=== PATIENT | male | born 1990 | race Caucasian/White ===

== ENCOUNTER 2021-01-10 13:51 | Observation (INO) | payer OTHER, BC ==
[~2021-01-10] VITALS: Ht 170.2 cm; Wt 68.0 kg
[2021-01-10 14:13] LABS: HEMOGLOBIN 15.2 gm/dl (14.0-17.5); RED BLOOD COUNT 4.99 M/UL (4.20-5.50); WHITE BLOOD COUNT 6.6 K/UL (4.5-11.0)
[2021-01-10 14:38] LABS: BUN/CREATININE RATIO 14 (0-10)
[2021-01-11] MEDS ORDERED: ENDOCET 7.5-321 EACH PO (11:34)
== END 2021-01-11 17:59 | disposition home or self-care (01) ==
LOC: ER1 13:51 → CDU 17:52 → M/S 17:52
PROVIDERS: Emergency Medicine; ADMIT Surgery
DX: S52.501A Unspecified fracture of the lower end of right radius, initial encounter for closed fracture (principal); S82.831A Other fracture of upper and lower end of right fibula, initial encounter for closed fracture; V29.00XA Motorcycle driver injured in collision with unspecified motor vehicles in nontraffic accident, initial encounter; Z20.822 Contact with and (suspected) exposure to COVID-19
CPT/HCPCS: 25690; 70450; 71045; 71260; 72125; 72170; 73100; 73110; 73610; 76000; 80053; 83605; 85025; 85610; 85730; 86850; 86900; 86901; 96374; 99152; 99285; C1713; G0378; G0480; J0690; J1100; J1170; J1885; J2001; J2270; J2405; J2704; J3010; Q9967; U0002